=== PATIENT | male | born 1960 | race Caucasian/White ===

== ENCOUNTER 2025-01-20 18:56 | Emergency (ER) | payer BC, OTHER ==
[~2025-01-20] VITALS: Ht 177.8 cm; Wt 105.7 kg
[~2025-01-20 18:56] MED LIST: ATEN-169 PO; LISI20TA28 PO; OMEP40CA21 PO
[2025-01-20] MEDS ORDERED: HYDR26CR2 TOP (20:36)
[2025-01-20 20:43] VITALS: BP 122/64; PULSE 78; RESP 16; TEMP 97.8; O2SAT 99
== END 2025-01-20 20:44 | disposition home or self-care (01) ==
LOC: ER 18:57
DX: K62.89 Other specified diseases of anus and rectum (principal); Z79.899 Other long term (current) drug therapy
CPT/HCPCS: 99282

== ENCOUNTER 2025-03-31 11:38 | Day surgery (SDC) | payer MEDICARE, BC ==
[2025-03-31] VITALS (11 sets, daily range): BP systolic 96–127; BP diastolic 56–75; PULSE 71–77; RESP 12–24; O2SAT 92–95
[~2025-03-31] VITALS: Ht 177.8 cm; Wt 100.0 kg
[~2025-03-31 11:38] MED LIST changes: -ATEN-169 PO; +ATEN50TA8 PO; +HYDR25TA4 PO; +HYDR28.484; -LISI20TA28 PO; +LISI40TA13 PO; +NAPR-1170; -OMEP40CA21 PO; +SIMV-45 PO
[2025-03-31] MEDS ORDERED: fentaNYL/PF 50MCG/1 ML 2ML syringe ONE (13:14)
[2025-03-31] MEDS ORDERED: MIDAZolam 1 MG/ML 5ML VIAL ONE (13:14)
[2025-03-31] MEDS ORDERED: simethicone 40mg/0.6ml oral drops 30ml ONE (13:15)
== END 2025-03-31 14:55 | disposition home or self-care (01) ==
LOC: GI LAB 11:38
PROVIDERS: ATTEND Internal Medicine Gastroenterology
DX: Z09 Encounter for follow-up examination after completed treatment for conditions other than malignant neoplasm (principal); Z86.0100 Personal history of colon polyps, unspecified; K62.89 Other specified diseases of anus and rectum
CPT/HCPCS: 45378; A4620; G0500; J2250; J3010; J7030; Z7512; 99152